=== PATIENT | male | born 2000 | race American Indian/Alaskan Native ===

== ENCOUNTER 2022-03-28 15:50 | Emergency (ER) | payer MEDICAID ==
[2022-03-28 16:21] VITALS: BP 125/72
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
--- NOTE | 2022-03-28 17:00 | XRay Report ---
XR hand 3+V RT INDICATION: hand pain/dislocation 5th finger. COMPARISON: None available. FINDINGS: There is a moderately displaced oblique fracture of the little finger proximal phalanx shaft. There i s no other fracture. Signer Name: Ricki Sanchez MD Signed: 03/28/2022 4:55 PM Workstation Name: [id number]
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
[2022-03-28] MEDS ORDERED: traMADol 50 MG TAB PO ONE (18:06)
--- NOTE | 2022-03-28 19:33 | XRay Report ---
RIGHT HAND 3 VIEW(S) INDICATION / CLINICAL INFORMATION: post splint COMPARISON: 03/28/2022 FINDINGS: BONES / JOINT(S): Displaced fracture of the proximal phalanx of the fifth finger is again noted.. The alignment appears similar to the prior exam. Detail is limited by splint material. ADDITIONAL FINDINGS: None. Signer Name: Tan Hoffmann MD Signed: 03/28/2022 7:29 PM Workstation Name: [id number]
== END 2022-03-28 20:20 | disposition home or self-care (01) ==
LOC: ED 15:50
DX: S62.616A Displaced fracture of proximal phalanx of right little finger, initial encounter for closed fracture (principal); X58.XXXA Exposure to other specified factors, initial encounter; Y93.89 Activity, other specified; Y92.89 Other specified places as the place of occurrence of the external cause; Y99.8 Other external cause status
CPT/HCPCS: 99283